=== PATIENT | female | born 1930 | race Caucasian/White ===

== ENCOUNTER 2017-04-06 18:40 | Inpatient (IN) | payer MEDICARE, OTHER ==
[~2017-04-06] VITALS: Ht 165.1 cm; Wt 62.9 kg
--- NOTE | ~2017-04-06 | DS ---
PATIENT'S NAME: MAURY AL [facility] AGE: 86 Y [address] ROOM: [id number] [place], [place] [address] LOCATION: GPCU ADMIT DATE: 04/06/2017 Discharge Summary DISCHARGE DATE: 04/09/2017 FAMILY PHYSICIAN: Дмитрий Rodriguez MD ATTENDING PHYSICIAN: Yudi Kingsley PRINCIPAL DIAGNOSES: 1. Syncope secondary to orthostatic hypotension. 2. Paroxysmal atrial fibrillation. 3. Essential hypertension. 4. Sick sinus syndrome with pacemaker. 5. Nocturnal hypoxia. 6. Pulmonary hypertension. HOSPITAL COURSE: 86-year-old, very pleasant lady was admitted from the outside facility with an episode where she was blank and was leaning toward one side. She was transferred here for further workup. A CAT scan was done, which did not reveal any acute intracranial abnormality. Because of the pacemaker, we did not get an MRI. On our evaluation, her NIH stroke score was 0 and there was no concern for stroke at that point. There was concern for seizure activity and an EEG was done, which was negative. A Cardiology consultation was obtained initially with a diagnosis of syncope secondary to orthostatic hypotension, for which she was positive for multiple times here. She was aggressively volume resuscitated in the hospital. She was also found to have right lower lobe pneumonia on the chest x-ray, where she was treated with ceftriaxone and doxycycline in the hospital. During the course of the hospitalization, her condition improved, but she continued to remain orthostatic. Cardiology recommended spacing out some of her blood pressure medication in order to reduce her orthostatic hypotension and we advised her to keep herself well hydrated at home. We will set up an appointment with Dr. Burger in 2 weeks to see how she is doing. DISCHARGE MEDICATIONS: Include: 1. Potassium chloride 10 mEq p.o. twice daily. 2. Amiodarone 200 mg p.o. twice daily. 3. Amlodipine 2.5 mg p.o. twice daily noon and at bedtime. 4. Aspirin 325 mg p.o. daily. 5. Coreg 3.125 mg p.o. twice daily. 6. Levothyroxine 75 mcg p.o. everyday before bedtime. 7. Lisinopril 40 mg p.o. twice daily in the morning and p.m. 8. Multivitamins. 9. Cholecalciferol. 10. We discontinued the Lasix, which she was taking at home. NEW MEDICATION: Include Augmentin 875, 125 mg p.o. b.i.d. for 5 days. PATIENT'S NAME: MAURY AL [facility] AGE: 86 Y [address] ROOM: [place] [address] LOCATION: GPCU ADMIT DATE: 04/06/2017 Discharge Summary DISCHARGE DATE: 04/09/2017 FAMILY PHYSICIAN: Дмитрий Rodriguez MD ATTENDING PHYSICIAN: Yudi Kingsley SUBJECTIVE: On the day of the discharge, she was feeling fine. She walked in the hallway, does not complain of any dizziness, any weakness, any chest pain, any palpitations. OBJECTIVE: VITAL SIGNS: Blood pressure 169/76, 60, 98, 16. GENERAL: No acute distress. Alert and oriented x3. CARDIOVASCULAR: S1, S2. No murmur, gallops, or rubs. LUNGS: Clear to auscultation bilaterally. ABDOMEN: Soft, nontender, and nondistended. Bowel sounds present. EXTREMITIES: No clubbing, cyanosis, or edema. LABS: On the day of the discharge, sodium 143, creatinine 1.0, potassium 4.1, chloride 111, bicarb of 26, calcium of 8.9. DISCHARGE INSTRUCTIONS: Keep herself hydrated. Low-sodium diet. FOLLOWUP: Follow up with Dr. Burger in 2 weeks in [place]. MD MICHAEL PITTS/danny /[id number] d: 04/09/172218 t: 05/01/17 0959, DISCHARGE SUMMARY
--- NOTE | ~2017-04-06 | NDGEN ---
PATIENT'S NAME: MAURY AL [facility] AGE: 86 Y [address] ROOM: [address] [address] LOCATION[facility] ADMIT DATE: 04/06/2017 Neurodiagnostics DISCHARGE DATE: FAMILY PHYSICIAN: Дмитрий Rodriguez MD ATTENDING PHYSICIAN: ELIDIA CLAYTON PROCEDURE: ELECTROENCEPHALOGRAM DATE OF PROCEDURE: 04/07/2017 HISTORY: This is an 86-year-old female patient who had a syncopal episode. This EEG was done to rule out any evidence of any abnormality in the background suggestive of epileptiform features. The general background rhythm for this patient was within normal range between 11-13 hertz alpha with normal amplitudes in the range of 15-30 microvolts. The background rhythm remained stable throughout. There was a lot of blinking artifacts seen in the frontal leads. The patient often opened eyes and closed eyes throughout the whole study. Photic stimulation did produce a bit of a photic drive response with increase in the amplitude which is a normal response. No time, there were any epileptiform features seen and no seizures were recorded. IMPRESSION: This is a normal EEG. MD ES CHEUNG/danny /[id number] dtt: 04/13/17 1326 , CRIS GAMA dtd: 04/07/17 1723
--- NOTE | ~2017-04-06 | CON ---
PATIENT'S NAME: MAURY AL [facility] AGE: 86 Y [address] ROOM: [id number] [place], [place] [address] LOCATION: GPCU ADMIT DATE: 04/06/2017 Consultation DISCHARGE DATE: FAMILY PHYSICIAN: Дмитрий Rodriguez MD ATTENDING PHYSICIAN: ELIDIA KINGSLEY REFERRING PHYSICIAN: CRIS GAMA MD REFERRING PHYSICIAN: Elidia Kingsley MD. REASON FOR CONSULT: Syncope. HISTORY OF PRESENT ILLNESS: This is an 86-year-old female well known to Dr. Jennyfer greer in 2014 for sick-sinus syndrome with a pause up to 4.5 seconds. She has an episode where she had a blank stare while sitting outside in the hot weather. There was no report of slurred speech or facial drooping. They did call the ambulance. By the time the ambulance got there, she was back into her usual state of health. There was some report that maybe she had loss of bowel or bladder, but according to her daughters, she did not. The patient had not had any problems with chest pain or shortness of breath with this. She had a similar episode to this a while back, and once again, she was in a very hot environment. Today, on the day of admission, daughters reported that she had not voided all day. There was some concern that maybe she was having an ST- elevation [place], but that was not the case once the EKG was reviewed by Dr. Negron. She had a slight elevation in her troponin of 0.8 in the setting of an elevated creatinine of 1.58. Her normal baseline creatinine is 0.8 to 1.0. Her BUN on admission was 36. Currently, she denies any lightheadedness or dizziness. She denies presyncope or syncopal episodes prior to this episode. She has not had any problems with orthopnea PND, no bowel or bladder loss. She denies any problems with exertional chest heaviness. PAST MEDICAL HISTORY: 1. Paroxysmal atrial fibrillation. 2. Essential hypertension. 3. Sick sinus syndrome, post dual-chamber [employer] pacemaker. 4. Hyperlipidemia. 5. High-risk medications in the form of amiodarone. 6. Nocturnal hypoxia, wearing O2 at h.s. 7. Severe pulmonary hypertension with RVSP of 65 mmHg with moderate pulmonic valve regurgitation on 08/29/2016. 8. Macular degeneration. PATIENT'S NAME: MAURY AL [facility] AGE: 86 Y [address] ROOM: [id number] [place], [place] [address] LOCATION: GPCU ADMIT DATE: 04/06/2017 Consultation DISCHARGE DATE: FAMILY PHYSICIAN: Дмитрий Rodriguez MD ATTENDING PHYSICIAN: ELIDIA KINGSLEY PAST SURGICAL HISTORY: 1. Hysterectomy. 2. Dual-chamber [employer] pacemaker on 06/12/2015. 3. Appendectomy. 4. Tonsillectomy. 5. Bilateral cataract surgery. FAMILY HISTORY: Mother from old age. Father of heart disease. SOCIAL HISTORY: She does live at home. She is a lifelong nonsmoker. She does not use alcohol. REVIEW OF SYSTEMS: GENERAL: She has been a little more fatigued lately, had no history of headache. EYES: She does wear corrective lenses. She has macular degeneration. EARS: No problems with hearing. NOSE: No epistaxis or rhinorrhea. MOUTH: No gingival bleeding. THROAT: Denies sore throat, hoarseness, or difficulty swallowing. CV: Per HPI. PULMONARY: No evidence of cough or hemoptysis. She does have a lot of phlegm in her throat. GASTROINTESTINAL: Negative for nausea, vomiting, or diarrhea. No melena or hematochezia. GENITOURINARY: Negative for urinary frequency or urgency. No history of urinary tract infection. ENDOCRINE: She is hypothyroid. NEUROLOGIC: She denies anxiety. HEMATOLOGIC: Negative for leukemia or cancers. MUSCULOSKELETAL: No complaints of arthralgias. She does have problems with myalgias that time. HOME MEDICATIONS: 1. Amiodarone 200 mg once a day. 2. Aspirin 81 mg daily. 3. Atorvastatin 40 mg once a day. 4. Coreg 3.125 mg b.i.d. 5. Levothyroxine 75 mcg daily. 6. Lexapro 5 mg every h.s. 7. Lisinopril 40 mg b.i.d. 8. Multivitamin daily. 9. Potassium bicarb citric acid 20 mEq tablet once a day. PATIENT'S NAME: MAURY AL [facility] AGE: 86 Y [address] ROOM: [id number] [place], [place] [address] LOCATION: GPCU ADMIT DATE: 04/06/2017 Consultation DISCHARGE DATE: FAMILY PHYSICIAN: Дмитрий Rodriguez MD ATTENDING PHYSICIAN: ELIDIA KINGSLEY 10. Vitamin C 1000 mg every day. 11. Vitamin D 5000 mg every day. ALLERGIES: BACTRIM, PENICILLIN, AND SULFA. PHYSICAL EXAMINATION: VITAL SIGNS: She is 5 feet 5 inches. She weighs 145 pounds. Blood pressure was 175/77, heart rate 60, respirations 17, temperature is 98.1. GENERAL: She is awake, answers questions appropriately. SKIN: Warm, dry, and pink. HEENT: Pupils were equal. They did react briskly to light. EOMs are intact. NECK: Soft and supple. No lymphadenopathy. No thyromegaly. JVD is flat. LUNGS: Sounds are clear without evidence of wheezes, rales, or rhonchi. CV: Regular with a normal S1 and S2 without murmur, rub, or click. ABDOMEN: Soft. Bowel sounds are present in all 4 quadrants. EXTREMITIES: Show no peripheral edema. No clubbing. No cyanosis. SKIN: Warm, dry, and pink without lesions or rashes noted. PSYCHIATRIC: Mood and affect are appropriate. ASSESSMENT: 1. Syncope. Check pacemaker interrogation, looking for any arrhythmic cause for her syncope. 2. Paroxysmal atrial fibrillation. She is to continue the amiodarone therapy. 3. Hypertension. Blood pressures are a little bit elevated. We will wait to see how she does and continue her current home medications. 4. Dyslipidemia. She is to continue with her current statin therapy. 5. Hypothyroid. She will continue the current Synthroid replacement. The assessment and plan, history of present illness, and physical exam are per Dr. Burger. Further recommendations will be forthcoming as information becomes available. MICHELLE GOTTLIEB APRN FOR MD CHRISTEN HOWELL/danny /[id number] d: 04/08/17 1628 t: 04/13/17 1654, CONSULTATION REPORT
--- NOTE | ~2017-04-06 | HP ---
PATIENT'S NAME: MAURY AL [facility] AGE: 86 Y [address] ROOM: [id number] [place], [place] [address] LOCATION: GPCU ADMIT DATE: 04/06/2017 History & Physical DISCHARGE DATE: FAMILY PHYSICIAN: PHYSICIAN, UNKNOWN ATTENDING PHYSICIAN: ELIDIA CLAYTON DATE OF SERVICE: CHIEF COMPLAINT: Altered mental status. HISTORY OF PRESENT ILLNESS: This is an 86-year-old female who is a poor historian. I got the story directly from the patient's daughter who was present when the event happened. The story is that the patient was sitting outside today on hot weather. All of the sudden, the daughter noticed that she looked funny on her face, which she described as a blank stare. There was no obvious facial droop or slurred speech but was not talking at all at that time. Then the patient was having tremor of both upper extremities and looked stiff in general and this episode lasted about 5 to 10 minutes and during this time her left shoulder was also weak. The patient did not have any witnessed syncope. The patient's daughter called the ambulance, when the ambulance crew arrived on the scene, the patient was already back to her normal state. The patient has no recollection whatsoever of what happened, but she strongly denies any chest pain, shortness of breath, dizziness, blurry vision, cough, or any other symptoms. The patient denies any recent poor oral intake or decreased urine output. The patient also denies any recent falls. Ambulance crew took her to the [facility], where they did an EKG showed paced rhythm and the physician special ed assistant over there thought that the patient was having STEMI based on the EKG; so, EKG was faxed to our on-call spiral gear generator, Dr. Negron, and determined that the EKG was not a STEMI. Blood work over there was also performed and remarkable for slight troponin elevation at 0.08, this was a troponin I. Otherwise, also showed creatinine of 1.58 and GFR of 31. When compared to the prior creatinine here on our [facility] on August of 2016, her creatinine was 1.0, GFR was 53. The patient was later transferred here for further care. Patient denies chest pain. REVIEW OF SYSTEMS: As mentioned in history of present illness. All other system were reviewed and they were negative except those mentioned in history of present illness. PATIENT'S NAME: PONCHO ALANOR Haven [facility] AGE: 86 Y [address] ROOM: [id number] [place], [place] [address] [facility] ADMIT DATE: 04/06/2017 History & Physical DISCHARGE DATE: FAMILY PHYSICIAN: PHYSICIAN, UNKNOWN ATTENDING PHYSICIAN: ELIDIA CLAYTON PAST MEDICAL HISTORY: 1. Sick sinus syndrome, status post pacemaker implantation in the past. 2. Hypertension. 3. History of paroxysmal atrial fibrillation. 4. Hypothyroidism. 5. Hyperlipidemia. 6. Last transthoracic echo was done in July 2016, at that time, it showed EF of 50% with severe pulmonary hypertension of the pulmonary pressure at 65 mmHg. ALLERGIES: PENICILLIN, WHICH CAUSES RASH. HOME MEDICATIONS: It has to be reconciled with the pharmacy in the morning. Neither the patient nor the family member know what she is taking, but the patient and the patient's family member denies any blood thinner at home. SOCIAL HISTORY: The patient denies any cigarette, illegal drug, alcohol, or smoking in the past or in the present. PAST SURGICAL HISTORY: 1. Status post pacemaker implantation. 2. Status post appendectomy. 3. Status post hysterectomy. FAMILY HISTORY: Both parents from old age. The patient does not remember if they had any heart problem or not. PHYSICAL EXAMINATION: VITAL SIGNS: At the time of my dictation, temperature 97.5, blood pressure 166/90, heart rate 84, respiration 13, and saturation 97% on room air. GENERAL APPEARANCE: Alert and oriented x3, in no acute distress. HEENT: Pupils are equally round and reactive to light. Extraocular muscles intact. Anicteric sclerae. Nasal turbinates are normal bilaterally. Moist oral mucosa. NECK: No JVD. CARDIOVASCULAR. Regular rate and rhythm. No murmur, no rubs, no gallops. Normal S1, S2. RESPIRATORY: She has crackles on the right lower lung; otherwise, clear to auscultation. Chest wall nontender to palpation. ABDOMEN: Soft, nontender, nondistended, normal bowel sounds. No hepatosplenomegaly. Bowel sounds are present. No mass. PATIENT'S NAME: [facility]CHO [facility] AGE: 86 Y [address] ROOM: [id number] [place], [place] [address] LOCATION: GPCU ADMIT DATE: 04/06/2017 History & Physical DISCHARGE DATE: FAMILY PHYSICIAN: PHYSICIAN, UNKNOWN ATTENDING PHYSICIAN: ELIDIA CLAYTON EXTREMITIES: No edema in upper or lower extremities. NEUROLOGIC: Grossly nonfocal. There is no facial droop. Pronator drift is negative. No tongue deviation upon protrusion. Babinski negative. No slurred speech. Grossly unremarkable. SKIN: No ulcer, no rash, no cyanosis. MUSCULOSKELETAL: No joint pain and no muscle pain. Range of motion intact. LABORATORY DATA: Currently, our blood work is currently pending. Blood work from the outside facility today showed sodium 140, potassium 4.5, chloride 102, carbon dioxide 35, glucose 99, BUN 40, creatinine 1.58, calcium 9.7, total protein 7.8, albumin 3.7, alkaline phosphatase 90, ALT 28, AST 34, total bilirubin 0.4, GFR 31, the CPK 87, CK-MB 1.2, troponin 0.08. INR 1.03, PT 10.5, PTT 24.1. White blood cells 6.1, hemoglobin 12.2, hematocrit 35.4, and platelet 230. IMAGING STUDIES: 1. Chest x-ray performed from the outside facility today, the report was read as increased heart size with fused changes in the chest suggestive of mild heart failure and mild edema. Diffuse bronchitis could also have this appearance. 2. EKG from the outside facility on April 06, 2017, at 4:14 p.m. show sinus rhythm and paced rhythm. 3. Repeat EKG on April 06, 2017, at 4:49 p.m. again showed the same finding. 4. Another EKG performed on the same day at 4:37 p.m. showed same finding. The patient denies any chest pain whatsoever. ASSESSMENT AND PLAN: 1. Regarding her altered mental status: Differential is wide. There was no witnessed syncope but patient is a poor historian and cannot remember. First differential could be seizure disorder based on the history. I will get an EEG in the morning, put her on the seizure precaution. I will check a prolactin. Second differential could be stroke; CT head is pending, can't get MRI of the brain due to pacemaker. Third differential could be arrhythmia; therefore, I am going to get pacemaker interrogation in the morning. I will also get a Cardiology consult to evaluate for the questionable syncope; Fourth differential could be orthostatic hypotension from dehydration; therefore, I will be checking orthostatic vital sign now, if positive, will give fluids bolus till it resolves. Another differential could be vasovagal. Acute coronary syndrome is less likely given that the patient does not have any chest pain at the moment. Our blood work are currently pending. PATIENT'S NAME: MAURY AL [facility] AGE: 86 Y [address] ROOM: [id number] [place], [place] [address] [facility] ADMIT DATE: 04/06/2017 History & Physical DISCHARGE DATE: FAMILY PHYSICIAN: PHYSICIAN, UNKNOWN ATTENDING PHYSICIAN: ELIDIA CLAYTON Continue telemetry monitoring. Cardiac diet and n.p.o. after midnight in case the patient requires any further testing in the morning. I will check A1c and also a lipid panel in the morning. Further plan depends on clinical course. 2. Regarding her hypertension: Currently, blood pressure is in the 170 systolic, heart rate in the 80. I will continue the nitroglycerin drip that was started from the outside facility to titrate for blood pressure control. Further plan depends on clinical course. I will try not to lower the blood pressure too aggressively in case patient had a stroke or TIA. 3. Regarding her right lower lung crackles: I will get a chest x-ray right now. The patient does not have any respiratory symptoms. She is saturating very well on room air. I do not think this is pneumonia and I am not going to start any antibiotics. Follow up on the chest x-ray finding. 4. Regarding her paroxysmal atrial fibrillation: The patient is in paced rhythm right now. The patient is not on blood thinner at home. Continue telemetry monitoring. 5. Regarding her hypothyroidism: Check TSH and modify the home-dose of levothyroxine if necessary. 6. Regarding her hyperlipidemia: I will check a lipid panel in the morning. Continue home medication if she is on statin. 7. Regarding her deep vein thrombosis prophylaxis: The patient is on compression devices. If the head CT rules out brain hemorrhage, then I will start her on heparin subcutaneous 3 times a day. 8. Code status: She is a full code. 9. Patient may have ANGELITO: The lab is pending, is on iv fluids. Total time spent in care on the day of admission 50 minutes, where 30 minutes was spent on counseling including addressing all the questions and concerns that the patient and family members had at the bedside, and I addressed all their questions and concerns to their satisfaction. I also went over the plan of care with the nurse. The remaining total time spent was in chart review, physical examination, and also on interview. I counseled the patient and the patient's family member on the differential diagnoses and the plan of care. Further plan depends on clinical course. PATIENT'S NAME: MAURY AL [facility] AGE: 86 Y [address] ROOM: [place] [address] [facility] ADMIT DATE: 04/06/2017 History & Physical DISCHARGE DATE: FAMILY PHYSICIAN: PHYSICIAN, UNKNOWN ATTENDING PHYSICIAN: ELIDIA CLAYTON LUDIN MOHAN MD CC/modl /[id number] D: T: 353 HISTORY & PHYSICAL
--- NOTE | ~2017-04-06 | ENPV ---
Carotid Duplex Study Demographics Patient Name MAURY AL Date of Study 04/07/2017 Patient Number [id number] Gender Female Date of 1930 Age 86 Visit Number [id number] Height 65 Accession Number [id number] Weight 144 Referring Interpreting Paradise Craft MD Physician Physician Physician Belia Ortiz [employer] Inspector Physician Brush Filler Hand Vee Key BS, RT Conclusions Summary TECHNIQUE: Duplex and color Doppler ultrasound assessment of the carotids and vertebrals and subclavians in standard fashion with image documentation. Findings: 1. Right carotid shows mild plaquing and minimal spectral broadening. Velocities are normal. ICA/CCA ratio 1.1. 2. Left carotid bifurcation shows mild plaquing and minimal spectral broadening. ICA/CCA ratio 0.9 . IMPRESSION: Both carotid bifurcations show mild plaquing. Velocities and waveforms place the degree of stenosis at 0-39% bilaterally. Procedure Type of Study: Cerebral:Carotid, Carotid Doppler Bilateral. Indications for Study:Syncope. Allergies - Penicillin. - Sulfa. Patient Status:Routine. Study Location:Inpatient Portable. Technical Quality:Adequate visualization. Velocities are measured in cm/s ; Diameters are measured in cm Carotid Right Measurements Carotid Left Measurements + +--------+--------+ + + + +--------+ --------+ + + !Location !PSV !EDV !Angle !%Stenosis ! !Location !PSV ! EDV !Angle !%Stenosis ! + +--------+--------+ + + + +--------+ --------+ + + !Prox CCA !87 !10 !60 ! ! !Prox CCA !82 ! 6 !60 ! ! + +--------+--------+ + + + +--------+ --------+ + + !Dist CCA !48 !9 !60 ! ! !Dist CCA !55 ! 9 !60 ! ! + +--------+--------+ + + + +--------+ --------+ + + !Prox ICA !92 !24 !60 ! ! !Prox ICA !70 ! 20 !60 ! ! + +--------+--------+ + + + +--------+ --------+ + + !Dist ICA !50 !13 !36 ! ! !Dist ICA !51 ! 11 !60 ! ! + +--------+--------+ + + + +--------+ --------+ + + !Prox ECA !156 ! !60 ! ! !Prox ECA !80 ! !60 ! ! + +--------+--------+ + + + +--------+ --------+ + + !Vertebral !51 ! !60 ! ! !Vertebral !37 ! !60 ! ! + +--------+--------+ + + + +--------+ --------+ + + !Subclavian !134 ! !60 ! ! !Subclavian !104 ! !60 ! ! + +--------+--------+ + + + +--------+ --------+ + + - There is antegrade vertebral flow noted on the right side. - There is antegrade verte bral flow noted on the left side. - Add'l Measurements:ICAPSV/CCAPSV 1.06.ICAEDV/CCAEDV 2.41. - Add'l Measurements:ICAPS V/CCAPSV 0.85.ICAEDV/CCAEDV 3.1. Signature dtt: Hamzah Ghotra dtd: 04/07/17 1303 Physician Self Edit
--- NOTE | ~2017-04-06 | ECHO ---
Transthoracic Echocardiography Report (TTE) Demographics Patient Name MAURY AL Date of Study 04/07/2017 Patient Number [id number] Visit Number [id number] Date of 1930 Room Number G6335 Gender Female Number Age 86 year(s) Referring Assembly Line Robot Operator Lyubov MILLANT, RDCS Physician Sophy Physician Interpreting Jennyfer Varma MD Supervisor [place] Physician Supervising Ordering Gerda Vaughan MD, MD/MLP Physician Nurse Stress Hosted Services Analyst Conclusions Contractility Score Summary Normal Left Ventricular contractility was noted. Summary The estimated left ventricular ejection fraction is 60%. Mild concentric left ventricular hypertrophy. Diastolic assessment reveals Grade II pseudonormal diastolic function . The interatrial septum appears aneurysmal. Bubble study performed with no obvious atrial communication. Moderate mitral regurgitation by color Doppler. There is mild aortic regurgitation by color Doppler. Mild-moderate tricuspid regurgitation by color Doppler. There is mild pulmonary hypertension. The pulmonary pressure (RVSP) is 44 mmHg. Mild-moderate pulmonic valve regurgitation by color Doppler. Procedure Type of Study TTE procedure:2D Echocardiogram, M-Mode, Doppler , Color Doppler. Procedure Date Date: 04/07/2017 Start: 01:45 PM Study Location: Inpatient Portable Technical Quality: Adequate visualization Indications:Syncope. Appropriate Use Criteria: 9 Patient Status: Routine HR: 60 bpm BP: 166/74 mmHg Allergies - Penicillin. - Sulfa. M-Mode/2D Measurements LV Diastolic Dimension: 3.85 cm LV Systolic Dimension: 2.13 cm LV Septum Diastolic: 1.32 cm LV PW Diastolic: 1.15 cm AO Root Dimension: 2.9 cm Cardiac Output: 3.67 l/min AV Cusp Separation: 1.5 cm RV Diastolic Dimension: 2.06 cm LA volume: 23 ml LVOT: 1.9 cm RV Base: 2.77 cm LVOT VTI: 21.6 cm RV Mid: 1.99 cm LV Stroke volume: 61.21 ml TAPSE: 2.04 cm TDI-S': 9.78 cm/s Doppler Measurements AV Peak Velocity: 1.38 m/s MV Peak E-Wave: 1.15 m/s AV Peak Gradient: 7.62 mmHg MV Peak A-Wave: 0.42 m/s AV Mean Gradient: 5 mmHg MV E/A Ratio: 2.77 LVOT Peak Velocity: 0.96 m/s MV P1/2t: 79 msec AV P1/2t: 716 msec TR Gradient:40.7 mmHg PV Peak Velocity: 0.82 m/s Estimated RAP:3 mmHg PV Peak Gradient: 2.69 mmHg Estimated RVSP: 44 mmHg Estimated PASP: 43.7 mmHg E' Septal Velocity: 0.04 m/s A' Septal Velocity: 0.04 m/s E' Lateral Velocity: 0.08 m/s A' Lateral Velocity: 0.03 m/s Findings Left Ventricle Mild concentric left ventricular hypertrophy. Abnormal septal motion. Right Ventricle Normal right ventricle structure and function. Device lead noted in the right ventricle. Left Atrium Normal left atrial size. Bubble study performed with no obvious atrial communication. Right Atrium Normal right atrial size. Mitral Valve Mild mitral annular calcification. Moderate mitral regurgitation by color Doppler. Aortic Valve There is mild aortic regurgitation by color Doppler. Tricuspid Valve Mild-moderate tricuspid regurgitation by color Doppler. There is moderate pulmonary hypertension. The pulmonary pressure (RVSP) is 44 mmHg. Pulmonic Valve Mild-moderate pulmonic valve regurgitation by color Doppler. Pericardial Effusion No evidence of pericardial effusion. Pleural Effusion No evidence of pleural effusion. Contractility Score LV regional wall motion:(0-Non visualized 1-Normal 2-Hypokinesis 3-Akinesis 4-Dyskinesis 5-Aneurysm) Signature dtt: Kojo Burger (cardio) dtd: 04/07/17 [id number] Physician Self Edit
[~2017-04-06 18:40] MED LIST changes: -AUGMENTIN 875-1 EACH PO; -LASIX20 MG PO
[2017-04-06] MEDS ORDERED: LASIX20 MG PO (22:48)
[2017-04-06 23:08] LABS: BASOPHIL # 0.1 K/uL (0.0-0.2); BASOPHIL % 0.7 %; EOSINOPHIL # 0.2 K/uL (0.0-0.5); EOSINOPHIL % 2.7 %; HEMATOCRIT 33.6 % (30.0-46.0); HEMOGLOBIN 11.3 g/dL (10.0-15.0); IMMATURE GRANULOCYTE % 0.6 %; LYMPHOCYTE # 1.3 K/uL (0.8-4.0); LYMPHOCYTE % 19.5 %; MCHC 33.6 gm/dL (32.0-36.5); MCV 92.1 fl (83.0-98.0); MONOCYTE # 0.7 K/uL (0.0-1.0); MONOCYTE % 10.7 %; MPV 9.7 fl (9.4-12.4); NEUTROPHIL # (ANC) 4.4 K/uL (1.8-7.8); NEUTROPHIL % 65.8 %; NRBC % 0 /100WBC (0-0.00); PLATELET COUNT 223 K/uL (150-450); RBC 3.65 M/uL (3.00-5.00); RDW-CV 14.5 % (11.9-14.6); WBC 6.7 K/uL (4.0-11.0)
[2017-04-06 23:20] LABS: PROTIME 11.6 SECONDS (9.8-11.4); PTT 26 SECONDS (25-32)
[2017-04-06 23:29] LABS: ALBUMIN 3.3 gm/dL (3.5-5.0); ALK PHOS 77 IU/L (33-138); ALT 26 IU/L (12-78); ANION GAP 13.9 (10.0-19.0); AST 29 IU/L (10-40); BLOOD UREA NITROGEN 36 mg/dL (6-24); CALCIUM 9.2 mg/dL (8.5-10.5); CHLORIDE 105 mMol/L (96-110); CO2 25 mMol/L (22-32); CPK 75 IU/L (21-215); CREATININE 1.4 mg/dL (0.5-1.1); ESTIMATED GFR (MDRD EQUATION) 36; MAGNESIUM 1.7 mg/dL (1.8-2.6); POTASSIUM 3.9 mMol/L (3.7-5.1); SODIUM 140 mMol/L (135-145); TOTAL BILIRUBIN 0.4 mg/dL (0.0-1.5); TOTAL PROTEIN 7.1 g/dL (6.0-8.4)
[2017-04-07 00:53] LABS: BILIRUBIN URINE NEGATIVE (NEGATIVE); BLOOD URINE NEGATIVE /UL (NEGATIVE); COLOR URINE YELLOW (YELLOW); GLUCOSE URINE NEGATIVE (NEGATIVE); KETONE URINE NEGATIVE (NEGATIVE); LEUKOCYTES URINE NEGATIVE /UL (NEGATIVE); NITRITE URINE NEGATIVE (NEGATIVE); PROTEIN URINE NEGATIVE (NEGATIVE); TURBIDITY URINE CLEAR (CLEAR); UROBILINOGEN URINE NORMAL (NORMAL)
[2017-04-07 04:26] LABS: CPK 70 IU/L (21-215)
[2017-04-07 08:35] LABS: ANION GAP 16.1 (10.0-19.0); CALCIUM 9.1 mg/dL (8.5-10.5); CREATININE 1.1 mg/dL (0.5-1.1); POTASSIUM 4.1 mMol/L (3.7-5.1)
[2017-04-07 11:21] LABS: CPK 90 IU/L (21-215)
[2017-04-08 04:01] LABS: BASOPHIL # 0.1 K/uL (0.0-0.2); BASOPHIL % 1.1 %; EOSINOPHIL # 0.4 K/uL (0.0-0.5); EOSINOPHIL % 6.3 %; HEMATOCRIT 34.8 % (30.0-46.0); HEMOGLOBIN 11.5 g/dL (10.0-15.0); IMMATURE GRANULOCYTE % 0.5 %; LYMPHOCYTE # 1.6 K/uL (0.8-4.0); LYMPHOCYTE % 25.2 %; MCH 30.7 pg (27.0-34.0); MONOCYTE # 0.8 K/uL (0.0-1.0); MONOCYTE % 12.2 %; MPV 11.4 fl (9.4-12.4); NEUTROPHIL # (ANC) 3.4 K/uL (1.8-7.8); NEUTROPHIL % 54.7 %; NRBC % 0 /100WBC (0-0.00); PLATELET COUNT 196 K/uL (150-450); RBC 3.74 M/uL (3.00-5.00); RDW-CV 14.6 % (11.9-14.6); WBC 6.2 K/uL (4.0-11.0)
[2017-04-08 04:19] LABS: ANION GAP 11.6 (10.0-19.0); CALCIUM 9.1 mg/dL (8.5-10.5); CREATININE 0.9 mg/dL (0.5-1.1); POTASSIUM 3.6 mMol/L (3.7-5.1)
[2017-04-09 04:13] LABS: ANION GAP 10.1 (10.0-19.0); CALCIUM 8.9 mg/dL (8.5-10.5); POTASSIUM 4.1 mMol/L (3.7-5.1)
[2017-04-09] MEDS ORDERED: AUGMENTIN 875-1 EACH PO (11:51)
== END 2017-04-09 12:15 | disposition disaster alternative care site (69) | DRG 312 ==
LOC: GPCU 19:27
PROVIDERS: Internal Medicine; ADMIT Internal Medicine
DX: I95.1 Orthostatic hypotension (principal); J18.9 Pneumonia, unspecified organism; I49.5 Sick sinus syndrome; I27.2 Other secondary pulmonary hypertension; I48.0 Paroxysmal atrial fibrillation; I10 Essential (primary) hypertension; E03.9 Hypothyroidism, unspecified; H35.30 Unspecified macular degeneration; Z95.0 Presence of cardiac pacemaker; Z88.0 Allergy status to penicillin; Z90.49 Acquired absence of other specified parts of digestive tract; Z90.710 Acquired absence of both cervix and uterus
CPT/HCPCS: C1751; J0696; J1644; J3475; J7030; J7040; J7050; J7120

== ENCOUNTER → 2017-04-06 | Outpatient (CLI) | payer MEDICARE, OTHER ==
[~2017-04-06] MED LIST: ASPIRIN325 MG PO; AUGMENTIN 875-1 EACH PO; CORDARONE,PACE200 MG PO; COREG 3.1253.125 MG PO; HYDRODIURIL25 MG PO; K-TAB ER20 MEQ PO; LASIX20 MG PO; LEVOTHROID(SYN75 MCG PO; LEXAPRO10 MG PO; LIPITOR40 MG PO; NITROSTAT0.4 MG SL; NORVASC2.5 MG PO; OCUVITE SOFTGE1 EACH PO; ONCE DAILY1 EACH PO; VITAMIN D35000 UNI1 PO; ZESTRIL40 MG PO
== END | disposition disaster alternative care site (69) ==
LOC: GAIR 18:25
DX: R53.81 Other malaise (principal); I48.91 Unspecified atrial fibrillation; I12.9 Hypertensive chronic kidney disease with stage 1 through stage 4 chronic kidney disease, or unspecified chronic kidney disease; N18.3 Chronic kidney disease, stage 3 (moderate); E78.5 Hyperlipidemia, unspecified; E03.9 Hypothyroidism, unspecified; R41.3 Other amnesia; R55 Syncope and collapse; Z79.82 Long term (current) use of aspirin; Z79.899 Other long term (current) drug therapy; Z88.1 Allergy status to other antibiotic agents; Z88.0 Allergy status to penicillin; Z88.2 Allergy status to sulfonamides
CPT/HCPCS: A0422; A0431; A0436